=== PATIENT | female | born 1980 | race Hispanic/Latino ===

== ENCOUNTER 2021-09-30 02:14 | Emergency (ER) | payer BC ==
[~2021-09-30] VITALS: Ht 162.6 cm; Wt 68.0 kg
[2021-09-30] MEDS ORDERED: ONDANSETRON HCL INJ 2MG/ML 2ML 2 MG/ML VIAL IV STA ×2 (02:50→03:12)
[2021-09-30] MEDS ORDERED: SODIUM CHLORIDE 0.9% 1000ML 1,000 ML IV ONE ×2 (03:00→03:45)
[2021-09-30] MEDS ORDERED: SODIUM CHLORIDE 0.9% 1000ML 1,000 ML ONE ×2 (03:02→03:55)
[2021-09-30] MEDS ORDERED: ONDANSETRON HCL INJ 2MG/ML 2ML 2 MG/ML VIAL ONE (03:02)
[2021-09-30] MEDS ORDERED: KETOROLAC TROMETHAMINE 30 MG/ML VIAL IV STA (03:42)
[2021-09-30] MEDS: PROMETHAZINE 12.5MG/ NACL 0.9% 12.5 MG/50 ML BAG IV ONE ×2 (03:50→04:39)
[2021-09-30] MEDS ORDERED: PROMETHAZINE HCL (IM) 25 MG/ML VIAL IM ONE (03:55)
[2021-09-30] MEDS ORDERED: KETOROLAC TROMETHAMINE 30 MG/ML VIAL ONE (03:55)
[2021-09-30] MEDS ORDERED: ONDANSETRON ODT4 MG PO (03:57)
[2021-09-30] MEDS ORDERED: PHENERGAN SUPP25 MG RC (04:00)
== END 2021-09-30 04:58 | disposition home or self-care (01) ==
LOC: FSED 02:51
DX: R11.2 Nausea with vomiting, unspecified (principal); E86.1 Hypovolemia; E86.0 Dehydration; R10.9 Unspecified abdominal pain
CPT/HCPCS: 80048; 80076; 81003; 85025; 99283; J1885; J2405; J2550; J7030

== ENCOUNTER 2024-10-03 02:49 | Emergency (ER) | payer BC ==
[~2024-10-03] VITALS: Ht 162.6 cm; Wt 81.6 kg
[~2024-10-03 02:49] MED LIST: ONDANSETRON ODT4 MG PO; PHENERGAN SUPP25 MG RC
[2024-10-03] MEDS: INSULIN REGULAR, HUMAN 100 UNIT/1 ML IV ONE (04:51)
[2024-10-03] MEDS: ONDANSETRON HCL INJ 2MG/ML 2ML 2 MG/ML VIAL IV STA (05:34)
[2024-10-03] MEDS: FAMOTIDINE 20 MG/2 ML VIAL IV STA (05:34)
[2024-10-03] MEDS: LACTATED RINGER'S 1,000 ML INJ ONE (05:35)
[2024-10-03 06:21] VITALS: PULSE 100; RESP 18; TEMP 98.4
[2024-10-03] MEDS ORDERED: KETOROLAC TROME10 MG PO (06:56)
[2024-10-03] MEDS ORDERED: ONDANSETRON ODT4 MG PO (06:57)
[2024-10-03] MEDS: MAGNESIUM/ALUMINUM/SIMETHICONE 30 ML UDC PO ONE (06:58)
[2024-10-03] MEDS: KETOROLAC TROMETHAMINE 30 MG/ML VIAL IV STA (06:59)
[2024-10-03 07:03] VITALS: BP 131/84; PULSE 92; RESP 18; TEMP 98.4; O2SAT 98
== END 2024-10-03 07:06 | disposition home or self-care (01) ==
LOC: FSED 02:54
DX: R11.2 Nausea with vomiting, unspecified (principal); K29.70 Gastritis, unspecified, without bleeding; R10.13 Epigastric pain; E11.65 Type 2 diabetes mellitus with hyperglycemia; Z11.52 Encounter for screening for COVID-19
CPT/HCPCS: 0223U; 36415; 80053; 81003; 81025; 83690; 85025; 87400; 99284; J1885; J2405; J7121